=== PATIENT | female | born 1940 | race Caucasian/White ===

== ENCOUNTER → 2018-01-25 | Outpatient (CLI) | payer OTHER ==
[2018-01-25 11:49] LABS: PCO2 42.8 mmHg (35.0-45.0); PO2 75.9 mmHg (80.0-100.0); pH 7.401 (7.360-7.450); sO2 95.2 % (92.0-98.0)
[2018-01-25 12:21] LABS: ABSOLUTE NEUTROPHILS 4.9 thou/uL (1.4-8.2); BASOPHILS 0.5 % (0.0-2.0); EOSINOPHILS 3.3 % (0.0-3.0); HEMATOCRIT 44.1 % (37.0-47.0); HEMOGLOBIN 14.4 gm/dL (12.0-15.0); LYMPHOCYTES 24.2 % (24.0-44.0); MCH 28.3 pg (26.0-34.0); MCHC 32.6 g/dL (28.0-37.0); MCV 86.8 fL (80.0-100.0); MONOCYTES 11.5 % (1.0-8.0); PLATELET COUNT 212 thou/uL (150-400); POLYS 60.5 % (36.0-66.0); RBC 5.08 mil/uL (4.20-5.00); RDW 15.3 % (10.5-14.5); WBC 8.1 thou/uL (4.0-11.0)
[2018-01-25 12:30] LABS: CALCIUM 9.6 mg/dL (8.5-10.1); CREATININE 1.3 mg/dL (0.6-1.0); POTASSIUM 3.7 mmol/L (3.5-5.1)
[2018-01-25 12:36] LABS: TOTAL BILIRUBIN 0.2 mg/dL (<0.1-1.0)
== END ==
LOC: RAD 10:34 → PUL 10:34
PROVIDERS: Internal Medicine Pulmonary Disease
DX: M41.84 Other forms of scoliosis, thoracic region (principal); G47.34 Idiopathic sleep related nonobstructive alveolar hypoventilation; R42 Dizziness and giddiness; R06.00 Dyspnea, unspecified; Z91.81 History of falling

== ENCOUNTER → 2018-02-02 | Outpatient (CLI) | payer OTHER | LOC: SLEEPLAB 21:24 | DX: G47.33 Obstructive sleep apnea (adult) (pediatric) (principal) ==